=== PATIENT | female | born 1995 | race American Indian/Alaskan Native ===

== ENCOUNTER 2017-12-15 18:39 | Emergency (ER) | payer SELFPAY ==
[2017-12-15] MEDS ORDERED: NACL 0.9% 1000 ML 1,000 ML IV ONE (19:05)
[2017-12-15 19:24] LABS: Basophils # (Auto) 0.1 K/mm3 (0.0-0.1); Basophils % (Auto) 1.5 % (0.0-1.8); Eosinophils # (Auto) 0.1 K/mm3 (0.0-0.4); Eosinophils % (Auto) 1.1 % (0.0-4.3); Hematocrit 36.6 % (30.3-42.9); Hemoglobin 13.2 gm/dl (10.1-14.3); Lymphocytes # (Auto) 3.7 K/mm3 (1.2-5.4); Lymphocytes % (Auto) 40.2 % (13.4-35.0); Mean Corpuscular HGB Conc 36 % (30-34); Mean Corpuscular Hemoglobin 34 pg (28-32); Mean Corpuscular Volume 94 fl (79-97); Monocytes # (Auto) 0.6 K/mm3 (0.0-0.8); Monocytes % (Auto) 6.3 % (0.0-7.3); Platelet Count 395 K/mm3 (140-440)
[2017-12-15 19:39] LABS: Alanine Aminotransferase 10 units/L (7-56); Albumin 4.2 g/dL (3.9-5); BUN/Creatinine Ratio 7; Blood Urea Nitrogen 4 mg/dL (7-17); Calcium 9.3 mg/dL (8.4-10.2); Hemolysis Index 1; Lipase 16 units/L (13-60)
[2017-12-15 20:09] LABS: Bacteria,Urine 1+ /HPF (Negative); Bilirubin,Urine NEG (Negative); Blood,Urine NEG (Negative); Color,Urine Straw (Yellow); Protein,Urine <15 mg/dL mg/dL (Negative); Urobilinogen,Urine < 2.0 mg/dL (<2.0); WBC,Urine < 1.0 /HPF (0.0-6.0)
[2017-12-15 20:13] LABS: HCG Qualitative,Urine Positive (Negative)
[2017-12-15] MEDS ORDERED: TYLENOL PO ONE (20:40)
[2017-12-15] MEDS ORDERED: ZOFRAN ODT ONE (20:47)
[2017-12-15] MEDS ORDERED: ZOFRAN ODT PO ONE (20:47)
--- NOTE | 2017-12-16 02:14 | Emergency Department Report ---
ED Abdominal Pain HPI - General Chief Complaint: Abdominal Pain Stated Complaint: SOB/CHEST/ABDOMINAL PAIN Time Seen by Provider: 12/16/17 02:06 Source: patient Mode of arrival: Ambulatory Limitations: No Limitations - History of Present Illness Initial Comments: Patient is 22 years old female with no significant past medical history the patient presented to the ER complaining of abdominal pain for the last few weeks and patient stated that pain started in the suprapubic area that radiated to epigastric area. Patient denied any fever, chest , cough or shortness of breath. MD Complaint: abdominal pain -: week(s) Location: suprapubic Radiation: epigastric Migration to: no migration Severity: moderate Severity scale (0 -10): 10 Quality: cramping Consistency: constant - Related Data Home Medications Medication Instructions Recorded Confirmed Last Taken No Known Home Medications [No 01/09/16 01/09/16 Unknown Reported Home Medications] Allergies Allergy/AdvReac Type Severity Reaction Status Date / Time shellfish derived Allergy Swelling Verified 01/09/16 19:01 ED Review of Systems ROS: Stated complaint: SOB/CHEST/ABDOMINAL PAIN Other details as noted in HPI Comment: All other systems reviewed and negative Constitutional: denies: chills Respiratory: denies: cough, shortness of breath, SOB with exertion, wheezing Cardiovascular: denies: chest pain Gastrointestinal: abdominal pain. denies: nausea, vomiting, diarrhea, constipation, hematemesis, melena, hematochezia Genitourinary: abnormal menses Neurological: denies: headache, weakness, numbness, paresthesias, confusion, abnormal gait ED Past Medical Hx - Past Medical History Hx Asthma: Yes (CHILD) - Surgical History Additional Surgical History: TONSILLECTOMY,WISDOM TEETH - Social History Smoking Status: Never Smoker Substance Use Type: None - Medications Home Medications: Home Medications Medication Instructions Recorded Confirmed Last Taken Type No Known Home Medications [No 01/09/16 01/09/16 Unknown History Reported Home Medications] ED Physical Exam - General Limitations: No Limitations General appearance: alert, in no apparent distress - Head Head exam: Present: atraumatic, normocephalic, normal inspection - Eye Eye exam: Present: normal appearance - ENT ENT exam: Present: normal exam, normal orophraynx, mucous membranes moist - Neck Neck exam: Present: normal inspection, full ROM. Absent: tenderness, meningismus, lymphadenopathy, thyromegaly - Respiratory Respiratory exam: Present: normal lung sounds bilaterally. Absent: respiratory distress, wheezes, rales, rhonchi, chest wall tenderness, accessory muscle use, decreased breath sounds, prolonged expiratory - Cardiovascular Cardiovascular Exam: Present: regular rate, normal rhythm, normal heart sounds - GI/Abdominal GI/Abdominal exam: Present: soft, normal bowel sounds. Absent: distended, tenderness, guarding, rebound, rigid, organomegaly, mass, bruit, pulsatile mass , hernia - Extremities Exam Extremities exam: Present: normal inspection, full ROM, normal capillary refill. Absent: pedal edema, calf tenderness - Back Exam Back exam: Present: normal inspection, full ROM. Absent: CVA tenderness (R), CVA tenderness (L), muscle spasm, paraspinal tenderness, vertebral tenderness, rash noted - Neurological Exam Neurological exam: Present: alert, oriented X3, CN II-XII intact, normal gait, reflexes normal - Skin Skin exam: Present: warm, intact, normal color ED Course Vital Signs 12/15/17 12/15/17 12/16/17 18:57 22:50 01:43 Temperature 98.8 F Pulse Rate 61 Respiratory 20 16 Rate Blood Pressure 114/69 Blood Pressure [Left] O2 Sat by Pulse 98 99 Oximetry 12/16/17 12/16/17 12/16/17 01:48 02:01 03:39 Temperature 98.1 F Pulse Rate 61 50 L Respiratory 16 20 Rate Blood Pressure 108/75 112/62 Blood Pressure 113/68 [Left] O2 Sat by Pulse 99 96 99 Oximetry 12/16/17 03:40 Temperature Pulse Rate 65 Respiratory 16 Rate Blood Pressure Blood Pressure [Left] O2 Sat by Pulse 99 Oximetry ED Medical Decision Making - Lab Data Result diagrams: 12/15/17 19:13 12/15/17 19:13 - Radiology Data Radiology results: report reviewed Referring Physician: TORIBIO BARRETO Patient Name: BEATRIZ GANDARA Date of : 1995 Sex: Female Report Date: 2017-12-16 Report Status: Finalized Findings [facility] [address] [place] [address] Ultrasound Report Signed Patient: BEATRIZ PLAZA MR#: [id number] : 1995 Acct:[id number] Age/Sex: 22 / F ADM Date: 12/15/17 Loc: ED Attending Dr: Ordering Physician: TORIBIO BARRETO Date of Service: 12/16/17 Procedure(s): US OB <= 14 weeks fetus Accession Number(s): [id number] cc: TORIBIO BARRETO FINAL REPORT EXAM: US OB lt; = 14 WEEKS FETUS HISTORY: ABDOMINAL PAIN/ TECHNIQUE: Transabdominal imaging was obtained of the pelvis. Doppler interrogation of the uterus was obtained. The uterus is anteverted measuring 7.8 cm x 4.9 cm x 7.1 cm. Within the uterus is a well-formed gestational sac which contains a yolk sac and pole. The crown-rump length is 12 mm corresponding to a 7 week 3 day IUP. The heart rate is 165 BPM. There is no evidence of subchorionic hemorrhage. Free fluid is not seen. The ovaries are not seen. FINDINGS: As above. IMPRESSION: Single viable IUP, 7 weeks 3 days. The heart rate is 165 BPM. Ovaries cannot be identified. Transcribed By: RB Dictated By: CARRILLO MARTINEZ MD Electronically Authenticated By: CARRILLO MARTINEZ MD Signed Date/Time: 12/16/17305 DD/ 5 TD/TT: 12/16/17305 Critical care attestation.: If time is entered above; I have spent that time in minutes in the direct care of this critically ill patient, excluding procedure time. ED Disposition Clinical Impression: Abdominal pain affecting Disposition: DC-01 TO HOME OR SELFCARE Is pt being admited?: No Condition: Stable Instructions: Abdominal Pain in (ED) Referrals: SOULEYMANE CAMACHO MD [Staff Physician] - 3-5 Days
--- NOTE | 2017-12-16 03:07 | Ultrasound Report ---
FINAL REPORT EXAM: US OB < = 14 WEEKS FETUS HISTORY: ABDOMINAL PAIN/ TECHNIQUE: Transabdominal imaging was obtained of the pelvis. Doppler interrogation of the uterus was obtained. The uterus is anteverted measuring 7.8 cm x 4.9 cm x 7.1 cm. Within the uterus is a well-formed gestational sac which contains a yolk sac and pole. The crown-rump length is 12 mm corresponding to a 7 week 3 day IUP. The heart rate is 165 BPM. There is no evidence of subchorionic hemorrhage. Free fluid is not seen. The ovaries are not seen. FINDINGS: As above. IMPRESSION: Single viable IUP, 7 weeks 3 days. The heart rate is 165 BPM. Ovaries cannot be identified.
[2017-12-16 03:49] VITALS: BP 112/62
== END 2017-12-16 04:15 | disposition home or self-care (01) ==
LOC: ED 18:39
DX: O26.891 Other specified pregnancy related conditions, first trimester (principal); R10.2 Pelvic and perineal pain; J45.909 Unspecified asthma, uncomplicated; Z3A.01 Less than 8 weeks gestation of pregnancy; Z91.013 Allergy to seafood; Z90.89 Acquired absence of other organs
CPT/HCPCS: 36415; 76801; 80053; 81001; 81025; 83690; 84702; 85025; 93005; 93010; Q0162

== ENCOUNTER 2018-07-24 08:48 | Inpatient (IN) | payer OTHER ==
--- NOTE | 2018-07-24 11:20 | Ultrasound Report ---
OB LIMITED INDICATION: Confirm presentation. COMPARISON: 12/16/2017 TECHNIQUE: Transabdominal grayscale ultrasound with Doppler interrogation. Gestation: Mejia Position: Cephalic Heart Rate: 140 BPM CONCLUSION: Findings, as above.
[2018-07-24 12:19] LABS: Basophils # (Auto) 0.1 K/mm3 (0.0-0.1); Basophils % (Auto) 0.7 % (0.0-1.8); Eosinophils # (Auto) 0.1 K/mm3 (0.0-0.4); Hematocrit 34.8 % (30.3-42.9); Hemoglobin 11.8 gm/dl (10.1-14.3); Lymphocytes # (Auto) 2.1 K/mm3 (1.2-5.4); Lymphocytes % (Auto) 29.1 % (13.4-35.0); Mean Corpuscular HGB Conc 34 % (30-34); Mean Corpuscular Volume 91 fl (79-97); Monocytes # (Auto) 0.4 K/mm3 (0.0-0.8); Monocytes % (Auto) 5.2 % (0.0-7.3); Platelet Count 353 K/mm3 (140-440); Red Blood Count 3.84 M/mm3 (3.65-5.03); Red Cell Distribution Width 13.1 % (13.2-15.2)
[2018-07-24] MEDS ORDERED: MINERAL OIL PO PRN (19:48)
[2018-07-24] MEDS ORDERED: XYLOCAINE 2% INFILTRATI ONE (19:48)
[2018-07-24] MEDS ORDERED: BRETHINE SUB-Q PRN (19:48)
[2018-07-24] MEDS ORDERED: BRETHINE IVP PRN (19:48)
[2018-07-24] MEDS ORDERED: PITOCin/NS 20 UNIT/1000ML DRIP 20 UNITS/1,000 ML BAG IV SCH (20:00)
--- NOTE | 2018-07-24 20:50 | History and Physical Report ---
History of Present Illness Date of examination: 07/24/18 Date of admission: 07/24/18 08:48 Chief complaint: IUP@38 6/7wga IOL for morbid obesity as recommended by APA Past History Past Medical History: asthma Past Surgical History: tonsillectomy [employer] History: chlamydia, herpes Social history: full code. denies: smoking, alcohol abuse, prescription drug abuse, IV drug use - Obstetrical History Expected Date of Delivery: 08/01/18 Actual Gestation: 38 Week(s) 6 Day(s) : 1 Medications and Allergies Allergies Allergy/AdvReac Type Severity Reaction Status Date / Time Iodine and Iodide Containing Allergy Itching Verified 07/24/18 09:44 Produc shellfish derived Allergy Swelling Verified 01/09/16 19:01 Home Medications Medication Instructions Recorded Confirmed Last Taken Type Pnv No.95/Ferrous Fum/Folic AC 1 each PO DAILY #30 tablet 12/16/17 07/24/18 Unknown Rx [ Vitamin Tablet] valACYclovir [Valtrex] 1 tab PO DAILY 07/24/18 07/24/18 07/23/18 09:00 History 1 Active Meds: Active Medications Dinoprostone (Cervidil) 10 mg VG ONCE ONE Stop: 07/25/18 00:01 Ephedrine Sulfate (Ephedrine Sulfate) 10 mg IV Q2M PRN PRN Reason: Hypotension Oxytocin/Sodium Chloride (Pitocin/Ns 20 Unit/1000ml Drip) 20 units in 1,000 mls @ 125 mls/hr IV DIRECT GIBSON Lactated Ringer's (Lactated Ringers) 1,000 mls @ 125 mls/hr IV DIRECT GIBSON Mineral Oil (Mineral Oil) 30 ml PO QHS PRN PRN Reason: Constipation Terbutaline Sulfate (Brethine) 0.25 mg SUB-Q ONCE PRN PRN Reason: Hyperstimulation/Hypertonicity Terbutaline Sulfate (Brethine) 0.25 mg IVP ONCE PRN PRN Reason: Hyperstimulation/Hypertonicity Valacyclovir HCl (Valtrex) 500 mg PO DAILY GIBSON Review of Systems All systems: negative - Vital Signs Vital signs: Vital Signs Pulse BP 73 124/70 07/24/18 09:13 07/24/18 09:13 Temp Pulse Resp BP Pulse Ox 98.3 F 80 20 119/71 07/24/18 18:00 07/24/18 19:29 07/24/18 18:00 07/24/18 19:29 - Physical Exam Breasts: Positive: deferred Cardiovascular: Regular rate Lungs: Positive: Normal air movement Abdomen: Positive: soft, other (obese). Negative: tenderness, guarding Genitourinary (Female): Positive: normal external genitalia, normal perenium Vulva: both: normal (no HSV lesions noted) Uterus: Positive: enlarged. Negative: tender Anus/Rectum: Positive: normal perianal skin Extremities: Positive: normal. Negative: tenderness, edema - Obstetrical FHR: category 1 Uterine Contraction Monitor Mode: External Cervical Dilatation: 1 Uterine Contraction Pattern: Absent Results Result Diagrams: 07/24/18 11:42 Abnormal lab results 07/24/18 Range/Units 11:42 RDW 13.1 L (13.2-15.2) % All other labs normal. Ultrasound: report reviewed Assessment and Plan - Patient Problems (1) 39 weeks gestation of Current Visit: Yes Status: Acute (2) Morbid obesity with BMI of 45.0-49.9, adult Current Visit: Yes Status: Acute Plan to address problem: Documented weight gain noted. Reason for IOL discussed with patient and family. She was informed IOL may take several days. Explained will start cervidil at [place] when she becomes 39weeks. Expectant course of care reviewed. She states her last US at [facility] EFW [id number]. Discussed 1-2#discrepancy and difficulty of assessing adequacy of pelvis at this EGA and body habitus.Shoulder dystocia explained. C/S discussed, however risks of complications and need for c/sfor subsequent pregnancies reviewed. She voiced understanding and agrees with BENEDICT. (3) History of herpes simplex infection Current Visit: Yes Status: Acute Plan to address problem: Denies prodromal symptoms or HSV outbreak, no evidence of HSV outbreaks
--- NOTE | 2018-07-24 23:20 | Event Note ---
Date: 07/24/18 Patient initially asked to leave AMA b/c she does not want a c/s. Again explained indication for c/s, she was reassured at this point she has no reason for a c/s. Again reiterated IOL and plan. She was informed she will have clear liquids while on cervidil and ice chips on pitocin. She voiced understanding and desires to proceed with IOL.
[2018-07-25] MEDS: AMBIEN PO PRN (00:31)
--- NOTE | 2018-07-25 09:35 | Progress Note ---
Assessment and Plan - Patient Problems (1) 39 weeks gestation of Current Visit: Yes Status: Acute (2) Morbid obesity with BMI of 45.0-49.9, adult Current Visit: Yes Status: Acute Plan to address problem: Cervdil out, allow shower, then pitocin, plan of care discussed with patient and visitors. She voiced understanding (3) History of herpes simplex infection Current Visit: Yes Status: Acute Subjective - Subjective Date of service: 07/25/18 Principal diagnosis: IUP@ 39weeks, IOL for Morbid obesity Patient reports: movement normal, no new complaints, no loss of fluid, no vaginal bleeding, no contractions Objective - Vital Signs Vital Signs: Vital Signs - 12hr 07/24/18 07/25/18 07/25/18 21:34 00:28 00:33 Temperature Pulse Rate 75 80 83 Respiratory Rate Blood Pressure 134/69 122/66 111/69 Blood Pressure [Left] 07/25/18 08:13 Temperature 96 F L Pulse Rate 81 Respiratory 16 Rate Blood Pressure 135/85 Blood Pressure 135/85 [Left] - Exam Breasts: deferred Cardiovascular: Normal S1 Lungs: Normal air movement Abdomen: Present: other (obese) Vulva: both: normal Uterus: Present: fundal height above umbilicus. Absent: tenderness FHR: category 1 Uterine Contraction Monitor Mode: External Cervical Dilatation: 1 Cervical Effacement Percentage: 30 station: -3 cervidil removed Uterine Contraction Pattern: Absent - Labs Labs: Abnormal Labs 07/24/18 11:42 RDW 13.1 L Laboratory Results - last 24 hr 07/24/18 07/24/18 07/24/18 11:42 11:42 11:42 WBC 7.4 RBC 3.84 Hgb 11.8 Hct 34.8 MCV 91 MCH 31 MCHC 34 RDW 13.1 L Plt Count 353 Lymph % (Auto) 29.1 Crosby % (Auto) 5.2 Eos % (Auto) 1.0 Baso % (Auto) 0.7 Lymph # 2.1 Crosby # 0.4 Eos # 0.1 Baso # 0.1 Seg Neutrophils % 64.0 Seg Neutrophils # 4.7 RPR Nonreactive Hep Bs Antigen HIV 1&2 Antibody Rapid HIV P24 Antigen Rubella IgG Antibody Blood Type A POSITIVE Antibody Screen Negative 07/24/18 07/24/18 07/24/18 11:42 11:42 11:42 WBC RBC Hgb Hct MCV MCH MCHC RDW Plt Count Lymph % (Auto) Crosby % (Auto) Eos % (Auto) Baso % (Auto) Lymph # Crosby # Eos # Baso # Seg Neutrophils % Seg Neutrophils # RPR Hep Bs Antigen Non-reactive HIV 1&2 Antibody Rapid Non react HIV P24 Antigen Non react Rubella IgG Antibody Immune Blood Type Antibody Screen
[2018-07-25] MEDS: VALTREX PO SCH (10:36)
[2018-07-25] MEDS: LACTATED RINGERS 1,000 ML IV SCH (10:37)
[2018-07-25] MEDS: PITOCin/NS 30 UNIT/500ML 30 UNITS/500 ML BAG IV SCH ×7 (10:37→16:20)
[2018-07-25] MEDS ORDERED: PITOCin/NS 30 UNIT/500ML 30 UNITS/500 ML BAG IV SCH (11:00)
[2018-07-25] MEDS ORDERED: CERVIDIL VG ONE ×2 (20:15)
--- NOTE | 2018-07-25 20:25 | Event Note ---
Date: 07/25/18 Patient resting in bed, no complaints. Will check cervix and place cervidil if no change. Cat 1 fht's. Plan of care explained, questions answered, she voiced understanding and agrees with plan of care
[2018-07-26] MEDS: AMBIEN PO PRN (01:22)
--- NOTE | 2018-07-26 07:56 | Progress Note ---
Assessment and Plan 23yo @ 39w1d IOL DAy # 2 Cervidil removed, SVE 1,40,-3. AM care, diet, ambulation. Will start pitocin @ 0930. Encouraged questions All addressed. present during visit with pt. Re-eval as needed. Subjective - Subjective Date of service: 07/26/18 (pt c/o leg pain) Principal diagnosis: IUP@ 39w1d, IOL for Morbid obesity Patient reports: movement normal, no new complaints, no loss of fluid, no vaginal bleeding, no contractions Objective - Vital Signs Vital Signs: Vital Signs - 12hr 07/25/18 07/25/18 07/25/18 20:08 21:00 21:54 Temperature 96.7 F L Pulse Rate 99 H 84 Respiratory 18 Rate Blood Pressure 140/70 119/58 07/26/18 07/26/18 07/26/18 00:00 00:03 01:33 Temperature 97.6 F Pulse Rate 75 72 Respiratory 20 Rate Blood Pressure 124/78 118/71 07/26/18 07/26/18 07/26/18 02:32 06:01 06:30 Temperature 96.0 F L Pulse Rate 82 86 Respiratory 18 Rate Blood Pressure 116/68 124/78 - Exam Breasts: deferred Cardiovascular: Regular rate Lungs: Normal air movement Abdomen: Present: normal appearance, soft. Absent: distention, tenderness Uterus: Present: normal FHR: auscultation normal, category 1 Uterine Contraction Monitor Mode: External Cervical Dilatation: 1 (cervidil removed) Cervical Effacement Percentage: 40 station: -3 Uterine Contraction Pattern: Irregular Uterine Tone Measurement Phase: Resting Uterine Contraction Intensity: Mild Extremities: edema Deep Tendon Reflex Grade: Normal +2 - Labs Labs: Abnormal Labs 07/24/18 11:42 RDW 13.1 L
[2018-07-26] MEDS: PITOCin/NS 30 UNIT/500ML 30 UNITS/500 ML BAG IV SCH (09:44)
[2018-07-26] MEDS: LACTATED RINGERS 1,000 ML IV SCH (09:56)
[2018-07-26] MEDS: VALTREX PO SCH (09:56)
--- NOTE | 2018-07-26 14:25 | Event Note ---
Date: 07/26/18 (Pt & family have ?? @ POC) Reviewed again POC with pt and her family. Serial IOL: cervidil @ night; pitocin in the daytime. IOL can take several days. Today is day #2. Plan: turn pit off @ 1700, PM care, place 3rd cervidil @ 1900. All questions addressed. Pt reassured.
[2018-07-26] MEDS ORDERED: CERVIDIL VG ONE (19:00)
--- NOTE | 2018-07-26 22:28 | Event Note ---
Date: 07/26/18 Spoke with patient by phone on speaker mode and witnessed by Sharee OTERO: She declines any further attempts of IOL and she desires to go home. Discussed low dose pitocin vs cervidil vs cytotec. She was strongly encouraged to remain hospitalized tonight with continuous monitoring. Also offered no further attempts tonight however allow her to speak with MFM in am then to make her decision. After a long discussion, she desires to go home. She was informed her baby may or be brain damaged should she leave and not have any monitoring. She voiced understanding and states she will leave against medical advice. She will call [facility] tomorrow to discuss plan of care.
--- NOTE | 2018-07-26 23:39 | Event Note ---
Date: 07/26/18 Spoke with patient again by phone, she now desires to remain hospitalized and is considering delivery tomorrow. She will review the consents.She will remain on continuous monitoring tonight.
[2018-07-26] MEDS ORDERED: LACTATED RINGERS 1,000 ML IV SCH (23:45)
[2018-07-27] MEDS ORDERED: PEPCID IV NR (07:30)
[2018-07-27] MEDS ORDERED: PITOCin/NS 20 UNIT/1000ML DRIP 20 UNITS/1,000 ML BAG IV SCH ×2 (07:30→15:11)
[2018-07-27] MEDS ORDERED: REGLAN IV NR (07:30)
[2018-07-27] MEDS ORDERED: LACTATED RINGERS 1,000 ML IV SCH (07:30)
[2018-07-27] MEDS ORDERED: BICITRA PO NR (07:30)
--- NOTE | 2018-07-27 07:34 | Event Note ---
Date: 07/27/18 Follow-up from Dr. Burleson's note, had the following discussion with the patient and her mother. Discussed the safest route of delivery would be to continue induction to achieve a vaginal delivery. Patient is frustrated by length of time that her labor induction has taken. Serous induction explained to the patient. I could not insure patient that continuing with induction would not result in a section. Patient desires to move to section. Patient informed the risks of the surgery include bleeding possibly bleeding heavy enough to require blood transfusion, infection possible damage to bowel bladder ureter. Discussed with the patient increased risk of all the above due to her obesity. All questions answered. Patient desires to proceed with section. Patient understands all future deliveries may be scheduled section.
[2018-07-27] MEDS ORDERED: ceFAZolin 3 GM in NACL 0.9% 100 ML IV NR (08:00)
[2018-07-27 08:32] LABS: Basophils # (Auto) 0.1 K/mm3 (0.0-0.1); Basophils % (Auto) 0.7 % (0.0-1.8); Eosinophils # (Auto) 0.1 K/mm3 (0.0-0.4); Lymphocytes # (Auto) 2.2 K/mm3 (1.2-5.4); Lymphocytes % (Auto) 27.5 % (13.4-35.0); Mean Corpuscular HGB Conc 34 % (30-34); Mean Corpuscular Volume 91 fl (79-97); Monocytes # (Auto) 0.6 K/mm3 (0.0-0.8); Platelet Count 360 K/mm3 (140-440); Red Blood Count 4.19 M/mm3 (3.65-5.03)
--- NOTE | 2018-07-27 11:00 | Anesthesia Consultation ---
Anesthesia Consult and Med Hx - Airway Anesthetic Teeth Evaluation: Good ROM Head & Neck: Adequate Mental/Hyoid Distance: Adequate Mallampati Class: Class II Intubation Access Assessment: Probably Good - Pulmonary Exam CTA: Yes - Cardiac Exam Cardiac Exam: RRR - Pre-Operative Health Status ASA Pre-Surgery Classification: ASA2 Proposed Anesthetic Plan: Spinal - Pulmonary Hx Asthma: Yes (CHILD) COPD: No Hx Pneumonia: No - Cardiovascular System Hx Hypertension: No - Central Nervous System Hx Seizures: No Hx Psychiatric Problems: No - Endocrine Hx Renal Disease: No Hx End Stage Renal Disease: No Hx Hypothyroidism: No Hx Hyperthyroidism: No - Hematic Hx Anemia: No Hx Sickle Cell Disease: No - Other Systems Hx Alcohol Use: No
--- NOTE | 2018-07-27 11:00 | Anesthesia Day of Surgery ---
Anesthesia Day of Surgery - Day of Surgery Patient Examined: Yes Patient H&P Reviewed: Yes Patient is NPO: Yes Beta Blockers: No Cardiac Clearance: No Pulmonary Clearance: No Isaias's Test: N/A
[2018-07-27] MEDS ORDERED: SUBLIMAZE ONE (11:16)
[2018-07-27] MEDS ORDERED: SODIUM CHLORIDE FLUSH SYRINGE 10 ML IV PRN (11:30)
[2018-07-27] MEDS ORDERED: PHENERGAN PO PRN (11:30)
[2018-07-27] MEDS ORDERED: PHENERGAN PR PRN (11:30)
[2018-07-27] MEDS ORDERED: BENADRYL IV PRN (11:30)
[2018-07-27] MEDS ORDERED: ZOFRAN IV PRN (11:30)
[2018-07-27] MEDS ORDERED: NARCAN 0.4 MG/1 ML IV PRN ×2 (11:30→15:11)
[2018-07-27] MEDS ORDERED: DILAUDID IV PRN (11:30)
[2018-07-27] MEDS ORDERED: LACTATED RINGERS 1,000 ML ONE (11:43)
[2018-07-27] MEDS ORDERED: TORADOL ONE (12:00)
[2018-07-27] MEDS ORDERED: BENADRYL ONE (12:33)
--- NOTE | 2018-07-27 12:36 | Operative Report ---
Operative Report Operative Report: Date of procedure: 07/27/2018 Pre-operative diagnosis: Intrauterine at 39 weeks with failed labor in duction for morbid obesity patient desires primary section Post-operative diagnosis: Same Procedure name(s): Primary low transverse section Surgeon: Popeye Sánchez MD Acetylene Gas Compressor: Adilene Lopez, physics technical officer Anesthesia: Spinal EBL: 500 mL Complications: None Findings: Patient with normal uterus tubes and ovaries bilaterally. Male infant weight 6 lbs. 7 oz. Apgars 8 at 1 minute and 9 at 5 minutes Specimen(s): None Procedure: The patient was brought to the operating room. Her spinal was placed without any complications. She was then placed in left lateral tilt. Prepped and draped in the usual sterile manner. After testing for adequate anesthesia level, a Pfannenstiel incision was made. This incision was taken down to the fascia. The fascia was then nicked in the midline. This incision was extended out laterally with Beavers scissors. The fascia was then sharply and bluntly from the underlying rectus muscles. The rectus muscles were bluntly and sharply . The peritoneum was then entered with the fiber drier operator's fingers. This incision was spread vertically with care not to damage the bladder below. The Aquiles self-retaining tractor was then placed without any difficulty. The bladder flap was then formed sharply and bluntly with Metzenbaum scissors. A transverse incision was made in lower uterine segment. This incision was extended laterally with the operators fingers. The amniotic sac was then entered bluntly with the fiber drier operator's fingers. The infant was delivered from the vertex position. Bulb suction on the mother's abdomen. Cord was double clamped and cut. The was then passed to the nursery personnel who were in attendance. The above scores were given by the nursery personnel. The placenta was then bluntly removed. The uterus was then externalized and wiped clean the remaining products. The uterine incision was closed in layers. The first incision was closed in a locking manner using 0 Vicryl. This was followed by imbricating stitch also with 0 Vicryl. This closure was hemostatic. The bladder flap was copiously irrigated and found to be hemostatic. The pelvis was copiously irrigated and found to be hemostatic. The uterus was then placed back to the patient's abdomen. The retractors were removed. The rectus muscles were inspected and found to be hemostatic. The fascia was then closed in a running manner using 0 Vicryl. This incision was hemostatic irrigation Bovie. The skin was reapproximated with 4-0 Vicryl subcuticularly. The patient tolerated procedure well. Her urine was clear. The infant was admitted to the [facility] baby nursery. The patient was accompanied to recovery room in good condition. Instrument count correct times 3.
--- NOTE | 2018-07-27 12:46 | Post Anesthesia Evaluation ---
- Post Anesthesia Evaluation Patient Participated: Yes Airway Patent: Yes Stable Respiratory Function: Yes Nausea/Vomiting: No Temp > 96.8F: Yes Pain Manageable: Yes Adequeate Hydration: Yes Anesthesia Complications: No Block Receding Appropriately: Yes Patient on Ventilator: No
[2018-07-27] MEDS ORDERED: LANSINOH TP PRN (15:11)
[2018-07-27] MEDS ORDERED: D5LR 1,000 ML IV SCH (15:11)
[2018-07-27] MEDS ORDERED: MILK OF MAGNESIA PO PRN (15:11)
[2018-07-27] MEDS ORDERED: SODIUM CHLORIDE FLUSH SYRINGE 10 ML IV NR (15:11)
[2018-07-27] MEDS ORDERED: TUCKS PAD TP PRN (15:11)
[2018-07-27] MEDS: NORCO 5/325 PO PRN (16:12)
[2018-07-27] MEDS: TORADOL IV SCH ×2 (16:13→23:30)
[2018-07-27] MEDS: ANCEF/NS 1 GM/50 ML 1 GM/50 ML BAG IV SCH (16:13)
[2018-07-28 00:31] LABS: Hematocrit 32.3 % (30.3-42.9); Hemoglobin 10.7 gm/dl (10.1-14.3)
[2018-07-28] MEDS: ANCEF/NS 1 GM/50 ML 1 GM/50 ML BAG IV SCH (01:23)
[2018-07-28] MEDS: TORADOL IV SCH ×2 (02:45→08:29)
--- NOTE | 2018-07-28 05:37 | Progress Note ---
Assessment and Plan - Patient Problems (1) delivery delivered Onset Date: ~07/27/18 Current Visit: Yes Status: Acute Plan to address problem: Pt sitting on side of bed caring for NB No c/o voiced VSS FF below umb Lochia small Dressing D&I H&H drop r/t blood loss from surgery Asymptomatic Doing well s/p c/s P: continue pathway Advance diet and activity as tolerated Subjective - Subjective Date of service: 07/28/18 (no voiced c/o) Principal diagnosis: Day # 1 s/p section Patient reports: voiding normally, pain well controlled, ambulating normally : doing well Objective - Vital Signs Latest vital signs: Vital Signs Temp Pulse Resp BP BP Pulse Ox 07/28/18 00:00 98.8 F 74 18 101/75 07/27/18 23:30 18 07/27/18 21:25 98.0 F 74 18 105/61 95 07/27/18 16:10 97.1 F L 74 18 116/67 100 07/27/18 14:17 97.6 F 66 18 100/56 07/27/18 14:00 73 16 101/79 99 07/27/18 13:45 77 14 103/56 100 07/27/18 13:30 67 12 91/64 99 07/27/18 13:15 73 13 96/61 100 07/27/18 13:05 68 12 104/61 100 07/27/18 13:00 79 14 98/57 100 07/27/18 12:55 68 16 108/53 99 07/27/18 12:45 97.0 F L 80 16 105/58 99 07/27/18 08:03 78 118/78 07/27/18 08:00 98.0 F 18 07/27/18 07:17 82 97 07/27/18 07:12 75 97 07/27/18 07:07 66 97 07/27/18 07:02 79 97 07/27/18 06:57 74 98 07/27/18 06:52 96 H 100 07/27/18 06:37 76 97 07/27/18 06:32 73 98 07/27/18 06:27 78 97 07/27/18 06:22 74 98 07/27/18 06:17 71 98 07/27/18 06:12 80 98 07/27/18 06:08 77 88 07/27/18 06:07 95 H 100 07/27/18 06:00 79 96 07/27/18 05:55 77 96 07/27/18 05:50 77 98 07/27/18 05:45 75 95 07/27/18 05:40 69 95 07/27/18 05:35 72 96 Intake and Output 07/27/18 07/27/18 07/28/18 14:59 22:59 06:59 Intake Total 1800 410 300 Output Total 175 100 Balance 1625 410 200 Intake: IV 1800 50 ANCEF/NS 1 GM/50 ML 1 gm 50 In 50 ml @ 100 mls/hr IV Q8H [facility] Rx#:[id number] Oral 360 Intake, Free Water 300 Output: Urine 175 100 Indwelling Catheter 100 Other: Total, Intake Amount 360 Total, Output Amount 100 # Voids Void 1 Estimated Blood Loss 300 - Exam Breasts: Present: normal Cardiovascular: Present: Regular rate Lungs: Present: Normal air movement Abdomen: Present: normal appearance, soft, normal bowel sounds Extremities: Present: normal, edema Deep Tendon Reflex Grade: Normal +2 Incision: Present: normal, dry, intact, dressed (to be removed this AM) - Labs Labs: Abnormal lab results 07/27/18 Range/Units 07:56 RDW 13.0 L (13.2-15.2) %
[2018-07-28] MEDS: NORCO 5/325 PO PRN ×3 (08:29→23:33)
[2018-07-28] MEDS: IBUPROFEN PO PRN ×3 (08:30→23:33)
[2018-07-28] MEDS: FEOSOL PO SCH ×2 (08:45→10:00)
[2018-07-28] MEDS: PRENATAL VITAMIN PO SCH ×2 (08:46→10:00)
[2018-07-29] MEDS: IBUPROFEN PO PRN ×3 (06:42→19:51)
[2018-07-29] MEDS: NORCO 5/325 PO PRN ×3 (06:43→19:52)
--- NOTE | 2018-07-29 08:28 | Discharge Summary ---
Providers - Providers Date of Admission: 07/24/18 08:48 Date of discharge: 07/29/18 Attending physician: SOULEYMANE CAMACHO 07/27/18 15:11 Consult to Telephone Installer [CONS] Routine Reason For Exam: Primary care physician: SOULEYMANE CAMACHO Hospitalization Reason for admission: IOL Condition: Good Pertinent studies: postop H&H 10.7/32.3 Procedures: primary c/s Hospital course: uncomplicated c/s and postop pathway Disposition: DC-01 TO HOME OR SELFCARE - Discharge Diagnoses (1) delivery delivered Status: Acute Core Measure Documentation - Palliative Care Palliative Care/ Comfort Measures: Not Applicable - Core Measures Any of the following diagnoses?: none Exam - Constitutional Vitals: Temp Pulse Resp BP Pulse Ox 98.2 F 88 18 117/66 98 07/29/18 07:51 07/29/18 07:51 07/29/18 07:51 07/29/18 07:51 07/29/18 07:51 General appearance: Present: no acute distress, well-nourished - EENT Eyes: Present: PERRL ENT: hearing intact, clear oral mucosa - Neck Neck: Present: supple, normal ROM - Respiratory Respiratory effort: normal Respiratory: bilateral: CTA - Cardiovascular Heart Sounds: Present: S1 & S2. Absent: rub, click - Extremities Extremities: pulses symmetrical, No edema Peripheral Pulses: within normal limits - Abdominal General gastrointestinal: Present: soft, non-tender, non-distended, normal bowel sounds Female genitourinary: Present: normal - Integumentary Integumentary: Present: clear, warm, dry - Musculoskeletal Musculoskeletal: gait normal, strength equal bilaterally - Psychiatric Psychiatric: appropriate mood/affect, intact judgment & insight - Neurologic Neurologic: CNII-XII intact, moves all extremities - Additional findings Additional findings: incision D&I - steristrips in place. with good latch. Lochia small Plan Activity: advance as tolerated Diet: regular Wound: open to air, keep clean and dry Follow up with: SOULEYMANE CAMACHO MD [Primary Care Provider] - 7 Days (Congratulations! Please call [phone] to schedule your son's circumcision and your incision check in 1 week. Bring EMLA cream to your son's appointment and await further teaching. Call for any questions or concerns. ) Forms: AMA Form Prescriptions: Ferrous Sulfate [Feosol 325 MG tab] 325 mg PO BID #60 tablet Ibuprofen [Motrin 800 MG tab] 800 mg PO Q6H PRN #30 tablet PRN Reason: Pain oxyCODONE /ACETAMINOPHEN [Percocet 5/325 mg] 1 - 2 tab PO Q4H PRN #30 tablet PRN Reason: Pain, Moderate
--- NOTE | 2018-07-29 10:28 | Progress Note ---
Assessment and Plan - Patient Problems (1) delivery delivered Onset Date: ~07/27/18 Current Visit: Yes Status: Acute Plan to address problem: Continue routine PP orders Anticipate d/c home tomorrow (2) Morbid obesity with BMI of 45.0-49.9, adult Current Visit: Yes Status: Acute (3) Anemia Current Visit: Yes Status: Acute Qualifiers: Anemia type: other cause Other causes of anemia: acute posthemorrhagic Qualified Code(s): D62 - Acute posthemorrhagic anemia Plan to address problem: Continue daily po iron supplemention as ordered Subjective - Subjective Date of service: 07/29/18 Principal diagnosis: Day # 2 s/p section Interval history: See admission H & P; OB operative note and PP progress notes Patient reports: appetite normal, voiding normally, pain well controlled (with medications), flatus, ambulating normally, other (States she is feeling good, just a little sore. Would rather wait until tomorrow to go home.), no bowel movement : doing well, bottle feeding (and breast) Objective - Vital Signs Latest vital signs: Vital Signs Temp Pulse Resp BP BP Pulse Ox 07/29/18 07:51 98.2 F 88 18 117/66 98 07/29/18 01:58 97.9 F 78 20 119/87 07/28/18 16:32 98.5 F 80 20 113/70 95 07/28/18 13:11 97.9 F 67 20 83/59 96 Intake and Output 07/28/18 07/29/18 07/29/18 23:59 07:59 15:59 Intake Total 360 Balance 360 Intake: Intake, Free Water 360 Other: # Voids Void 1 - Exam Breasts: Present: normal Cardiovascular: Present: Regular rate Lungs: Present: Normal air movement Abdomen: Present: soft, normal bowel sounds Uterus: Present: firm, fundal height below umbilicus (U-1) Extremities: Present: normal, edema (slight edema) Deep Tendon Reflex Grade: Normal +2 Incision: Present: dry, intact (steri-strips with no bleeding or drainage noted)
[2018-07-29] MEDS: PRENATAL VITAMIN PO SCH (14:05)
[2018-07-29] MEDS: FEOSOL PO SCH (14:05)
[2018-07-30] MEDS: NORCO 5/325 PO PRN ×2 (03:03→11:12)
[2018-07-30] MEDS: IBUPROFEN PO PRN ×2 (03:03→11:13)
[2018-07-30] MEDS: PRENATAL VITAMIN PO SCH (09:56)
[2018-07-30] MEDS: FEOSOL PO SCH (09:56)
[2018-07-30 13:24] VITALS: BP 119/74
== END 2018-07-30 13:30 | disposition home or self-care (01) | DRG 765 ==
LOC: LD 08:48 → OB 07-27 14:48
PROVIDERS: ADMIT Obstetrics & Gynecology; ATTEND Obstetrics & Gynecology
PROC: 3E0P7VZ Introduction of Hormone into Female Reproductive, Via Natural or Artificial Opening (ICD-10-PCS; 2018-07-24)
PROC: 10D00Z1 Extraction of Products of Conception, Low, Open Approach (ICD-10-PCS; principal; 2018-07-27)
DX: O99.214 Obesity complicating childbirth (principal); D62 Acute posthemorrhagic anemia; O61.0 Failed medical induction of labor; O90.81 Anemia of the puerperium; Z3A.39 39 weeks gestation of pregnancy; Z37.0 Single live birth; E66.01 Morbid (severe) obesity due to excess calories; O99.52 Diseases of the respiratory system complicating childbirth; Z90.89 Acquired absence of other organs; Z91.041 Radiographic dye allergy status; Z91.013 Allergy to seafood; J45.909 Unspecified asthma, uncomplicated
CPT/HCPCS: 36415; 76815; 85014; 85018; 85025; 86592; 86706; 86762; 86850; 86900; 86901; 87806; G0378; J0690; J1200; J1885; J2405; J2590; J2765; J3010; J7120; J7121

== ENCOUNTER 2019-01-31 11:27 | Emergency (ER) | payer MEDICAID, OTHER ==
--- NOTE | 2019-01-31 11:38 | Emergency Department Report ---
Blank Doc - Documentation Documentation: 24-year-old female that presents with lower abdominal pain and n/v. This initial assessment/diagnostic orders/clinical plan/treatment(s) is/are subject to change based on patient's health status, clinical progression and re- assessment by fellow clinical providers in the ED. Further treatment and workup at subsequent clinical providers discretion. Patient/guardians urged not to elope from the ED as their condition may be serious if not clinically assessed and managed. Initial orders include: 1- Patient sent to [facility] for further evaluation and treatment 2- UA 3- labs
[2019-01-31 11:59] LABS: Basophils # (Auto) 0.1 K/mm3 (0.0-0.1); Basophils % (Auto) 1.2 % (0.0-1.8); Eosinophils # (Auto) 0.1 K/mm3 (0.0-0.4); Eosinophils % (Auto) 1.1 % (0.0-4.3); Hemoglobin 12.7 gm/dl (10.1-14.3); Lymphocytes % (Auto) 33.9 % (13.4-35.0); Mean Corpuscular HGB Conc 33 % (30-34); Mean Corpuscular Volume 91 fl (79-97); Monocytes # (Auto) 0.5 K/mm3 (0.0-0.8); Monocytes % (Auto) 6.1 % (0.0-7.3); Platelet Count 388 K/mm3 (140-440); Red Blood Count 4.17 M/mm3 (3.65-5.03); Red Cell Distribution Width 13.7 % (13.2-15.2)
[2019-01-31 12:16] LABS: Bilirubin,Urine NEG (Negative); Blood,Urine NEG (Negative); Color,Urine Yellow (Yellow); Mucus,Urine FEW /HPF; Protein,Urine <15 mg/dL mg/dL (Negative); Urobilinogen,Urine < 2.0 mg/dL (<2.0)
[2019-01-31 12:22] LABS: Alanine Aminotransferase 29 units/L (7-56); Albumin 4.3 g/dL (3.9-5); BUN/Creatinine Ratio 9; Blood Urea Nitrogen 6 mg/dL (7-17); Calcium 9.4 mg/dL (8.4-10.2); Hemolysis Index 2
[2019-01-31 12:23] LABS: HCG Qualitative,Urine Positive (Negative)
[2019-01-31] MEDS ORDERED: METOCLOPRAMIDE 10 MG/2 ML INJ IV ONE (12:39)
[2019-01-31] MEDS ORDERED: SODIUM CHLORIDE 0.9% 1000 ML 1,000 ML IV ONE (12:39)
[2019-01-31] MEDS ORDERED: ACETAMINOPHEN 325 MG TAB PO ONE (12:39)
--- NOTE | 2019-01-31 13:11 | Emergency Department Report ---
HPI - General Chief Complaint: Abdominal Pain Time Seen by Provider: 01/31/19 11:37 - HPI HPI: 24-year-old female presents to the emergency department with complaint of a few days of nausea and vomiting, constipation and some abdominal discomfort. The abdominal pain is both very low and to the upper abdomen. It worsens with any type of intra-abdominal pressure including her touching her belly or her trying to have a bowel movement. She denies any dysuria, vaginal bleeding or discharge, fever. She has not taken anything for her symptoms prior to presentation. The patient has a 5-month-old child and says that she had a menstrual cycle sometime last month. No recent travel or sick contacts at home. She does not have a primary care physician or [facility]. ED Past Medical Hx - Past Medical History Previous Medical History?: Yes Hx Hypertension: No Hx Congestive Heart Failure: No Hx Diabetes: No Hx Deep Vein Thrombosis: No Hx Renal Disease: No Hx Sickle Cell Disease: No Hx Seizures: No Hx Asthma: Yes (CHILD) Hx COPD: No Hx HIV: No - Surgical History Past Surgical History?: Yes Additional Surgical History: TONSILLECTOMY, C section - Social History Smoking Status: Never Smoker Substance Use Type: None - Medications Home Medications: Home Medications Medication Instructions Recorded Confirmed Last Taken Type Pnv No.95/Ferrous Fum/Folic AC 1 each PO DAILY #30 tablet 12/16/17 07/24/18 Unknown Rx [ Vitamin Tablet] valACYclovir [Valtrex] 1 tab PO DAILY 07/24/18 07/24/18 07/23/18 09:00 History 1 Ferrous Sulfate [Feosol 325 MG tab] 325 mg PO BID #60 tablet 07/27/18 Unknown Rx Ibuprofen [Motrin 800 MG tab] 800 mg PO Q6H PRN #30 tablet 07/27/18 Unknown Rx oxyCODONE /ACETAMINOPHEN [Percocet 1 - 2 tab PO Q4H PRN #30 tablet 07/27/18 Unknown Rx 5/325 mg] Lidocain2.5%/Prilocai2.5% [Emla] 5 gm TP ONCE PRN #1 tube 07/29/18 Unknown Rx Metoclopramide [Reglan] 10 mg PO TID PRN #20 tab 01/31/19 Unknown Rx Vit-Fe Fumar-FA [ 1 tab PO QDAY #30 tablet 01/31/19 Unknown Rx Vitamin] ED Review of Systems ROS: Stated complaint: ABD PAIN/VOMIT BLOOD/ACID Other details as noted in HPI Comment: All other systems reviewed and negative Constitutional: denies: chills, fever Respiratory: denies: shortness of breath Cardiovascular: denies: chest pain Gastrointestinal: abdominal pain, nausea, vomiting Genitourinary: denies: dysuria, discharge Musculoskeletal: denies: back pain, arthralgia Neurological: denies: headache, weakness Physical Exam - Physical Exam Vital Signs: Vital Signs 01/31/19 11:38 Temperature 97.7 F Pulse Rate 61 Respiratory 16 Rate Blood Pressure 141/63 O2 Sat by Pulse 99 Oximetry Physical Exam: GENERAL: The patient is well-developed well-nourished. HENT: Normocephalic. Atraumatic. Patient has moist mucous membranes. EYES: Extraocular motions are intact. NECK: Supple. Trachea is midline. CHEST/LUNGS: Clear to auscultation. There is no respiratory distress noted. HEART/CARDIOVASCULAR: Regular. There is no tachycardia. There is no murmur. ABDOMEN: Abdomen is soft. There is some generalized tenderness to palpation of the abdomen. No guarding. Patient has normal bowel sounds. Obese habitus. SKIN: Skin is warm and dry. NEURO: The patient is awake, alert, and oriented. The patient is cooperative. The patient has no focal neurologic deficits. Normal speech. MUSCULOSKELETAL: There is no tenderness or deformity. There is no evidence of acute injury. ED Course Vital Signs 01/31/19 11:38 Temperature 97.7 F Pulse Rate 61 Respiratory 16 Rate Blood Pressure 141/63 O2 Sat by Pulse 99 Oximetry ED Medical Decision Making - Lab Data Result diagrams: 01/31/19 11:43 01/31/19 11:43 - Radiology Data Radiology results: report reviewed OB ultrasound FINDINGS: Viable IUP is seen with heart rate 124 bpm. Appropriate measurements reveal an MA of 6 weeks 5 days for an EDC of 09/21/2019. No hemorrhage is seen. The right ovary is normal. Left ovary contains a 3.1 x 2.8 x 3.3 cm cyst. No free fluid. IMPRESSION: Viable IUP with left corpus luteum cyst. Signer Name: Colin Sánchez MD Signed: 01/31/2019 3:13 PM ULTRASOUND ABDOMEN, LIMITED (RIGHT UPPER QUADRANT) INDICATION: abd pain. COMPARISON: None available. FINDINGS: Pancreas: Visualized portion shows no significant abnormality. Liver: Normal. Gallbladder: Normal. Bile ducts: Normal. Common Bile Duct measures 2 mm. Free fluid: None. Additional Findings: None. IMPRESSION: 1. No sonographic abnormality of the right upper quadrant. Signer Name: Colin Sánchez MD Signed: 01/31/2019 3:05 PM Workstation Name: [id number] - Medical Decision Making This patient originally presented with some abdominal pain, nausea and vomiting. As part of her workup she was found be . Beta hCG of greater than 30,000. Ultrasound was performed that came back showing a live intrauterine just under 7 weeks. She also had a upper abdominal ultrasound that did not show any acute process. Labs have been unremarkable otherwise. Vital signs stable throughout her ED course. Patient was feeling better after a dose of Tylenol and Reglan. She will be given a prescription for the Reglan and some referrals for [facility]OURNEY[facility] PAINTER. She will also be placed on vitamins. She will return to the emergency Department with any worsening of her symptoms or any acute distress. - Differential Diagnosis , UTI, colitis, cholelithiasis Critical Care Time: No Critical care attestation.: If time is entered above; I have spent that time in minutes in the direct care of this critically ill patient, excluding procedure time. ED Disposition Clinical Impression: Qualifiers: Weeks of gestation: less than 8 weeks Qualified Code(s): Z3A.01 - Less than 8 weeks gestation of Nausea & vomiting Qualifiers: Vomiting type: unspecified Vomiting Intractability: non-intractable Qualified Code(s): R11.2 - Nausea with vomiting, unspecified Abdominal pain Qualifiers: Abdominal location: generalized Qualified Code(s): R10.84 - Generalized abdominal pain Disposition: DC-01 TO HOME OR SELFCARE Is pt being admited?: No Condition: Stable Instructions: (ED), Acute Nausea and Vomiting (ED), Abdominal Pain (E D) Additional Instructions: Please follow-up with a JOURNEYMAN PAINTER in the next few days. I am starting you on vitamins. I am prescribing use some Reglan for your nausea and vomiting. Increase your oral rehydration. You can take Tylenol every 4-6 hours, using weight-based dosing on the back of the bottle, as needed for any discomfort. Otherwise do not take any other medications that are not prescribed by a physician. Prescriptions: Vit-Fe Fumar-FA [ Vitamin] 1 tab PO QDAY #30 tablet Metoclopramide [Reglan] 10 mg PO TID PRN #20 tab PRN Reason: Nausea Referrals: [facility] [Provider Group] - 2-3 Days [facility] [Provider Group] - 2-3 Days Time of Disposition: 15:33
--- NOTE | 2019-01-31 15:09 | Ultrasound Report ---
ULTRASOUND ABDOMEN, LIMITED (RIGHT UPPER QUADRANT) INDICATION: abd pain. COMPARISON: None available. FINDINGS: Pancreas: Visualized portion shows no significant abnormality. Liver: Normal. Gallbladder: Normal. Bile ducts: Normal. Common Bile Duct measures 2 mm. Free fluid: None. Additional Findings: None. IMPRESSION: 1. No sonographic abnormality of the right upper quadrant. Signer Name: Colin Sánchez MD Signed: 01/31/2019 3:05 PM Workstation Name: [id number]
--- NOTE | 2019-01-31 15:18 | Ultrasound Report ---
OB ultrasound FINDINGS: Viable IUP is seen with heart rate 124 bpm. Appropriate measurements reveal an MA of 6 weeks 5 days for an EDC of 09/21/2019. No hemorrhage is seen. The right ovary is normal. Left ovary c ontains a 3.1 x 2.8 x 3.3 cm cyst. No free fluid. IMPRESSION: Viable IUP with left corpus luteum cyst. Signer Name: Colin Sánchez MD Signed: 01/31/2019 3:13 PM Workstation Name: [id number]
[2019-01-31 15:50] VITALS: BP 101/74
== END 2019-01-31 15:50 | disposition home or self-care (01) ==
LOC: ED 11:27
DX: O21.8 Other vomiting complicating pregnancy (principal); O26.891 Other specified pregnancy related conditions, first trimester; R10.30 Lower abdominal pain, unspecified; Z3A.12 12 weeks gestation of pregnancy
CPT/HCPCS: 36415; 76705; 76801; 80053; 81001; 81025; 83690; 84702; 85025; 96361; 96374; 99284; J2765; J7030

== ENCOUNTER 2019-02-11 13:11 | Emergency (ER) | payer OTHER ==
--- NOTE | 2019-02-11 13:41 | Event Note ---
ED Screening Note Date of service: 02/11/19 Time: 13:30 ED Screening Note: PT reports chest heaviness, SOB and 10 weeks . Denies swelling to legs. Reports nausea and vomiting. Denies cough or fever. Positive care Denies abdominal pain or vaginal bleeding Alert and non toxic. no distress VSS, AFEB This initial assessment/diagnostic orders/clinical plan/treatment(s) is/are subject to change based on patients health status, clinical progression and re- assessment by fellow clinical providers in the ED. Further treatment and workup at subsequent clinical providers discretion. Patient/guardian urged not to elope from the ED as their condition may be serious if not clinically assessed and managed. Initial orders include: Labs
[2019-02-11 14:00] LABS: Basophils # (Auto) 0.1 K/mm3 (0.0-0.1); Eosinophils % (Auto) 0.4 % (0.0-4.3); Hematocrit 39.8 % (30.3-42.9); Hemoglobin 13.5 gm/dl (10.1-14.3); Lymphocytes # (Auto) 2.8 K/mm3 (1.2-5.4); Lymphocytes % (Auto) 30.4 % (13.4-35.0); Mean Corpuscular HGB Conc 34 % (30-34); Mean Corpuscular Volume 90 fl (79-97); Monocytes # (Auto) 0.5 K/mm3 (0.0-0.8); Monocytes % (Auto) 5.2 % (0.0-7.3); Platelet Count 422 K/mm3 (140-440); Red Blood Count 4.42 M/mm3 (3.65-5.03); Red Cell Distribution Width 13.6 % (13.2-15.2)
[2019-02-11 14:11] LABS: Alanine Aminotransferase 30 units/L (7-56); Albumin 4.4 g/dL (3.9-5); BUN/Creatinine Ratio 11; Blood Urea Nitrogen 8 mg/dL (7-17); Calcium 9.8 mg/dL (8.4-10.2); Hemolysis Index 2
[2019-02-11 14:12] LABS: INR 1.07 (0.87-1.13)
[2019-02-11 14:13] LABS: Partial Thromboplastin Time 34.3 Sec. (24.2-36.6)
[2019-02-11] MEDS ORDERED: ONDANSETRON 4 MG/2 ML INJ IM ONE (14:24)
[2019-02-11] MEDS ORDERED: ONDANSETRON 4 MG/2 ML INJ ONE (14:26)
--- NOTE | 2019-02-11 14:34 | Emergency Department Report ---
ED General Adult HPI - General Chief complaint: Chest Pain Stated complaint: DAVIDSON Time Seen by Provider: 02/11/19 13:30 Source: patient Mode of arrival: Ambulatory Limitations: No Limitations - History of Present Illness Initial comments: Patient is 24 years old female 2, 1 at 8 weeks . Patient presented to the ER complaining of chest pain and shortness of breath started after nausea and vomiting. Patient stated that symptoms has been going on for a few days. Patient denied any fever or chills. No cough. Patient denied any abdominal pain, pelvic pain, vaginal bleeding or discharge. - Related Data Home Medications Medication Instructions Recorded Confirmed Last Taken valACYclovir [Valtrex] 1 tab PO DAILY 07/24/18 07/24/18 07/23/18 09:00 1 Previous Rx's Medication Instructions Recorded Last Taken Type Pnv No.95/Ferrous Fum/Folic AC 1 each PO DAILY #30 tablet 12/16/17 Unknown Rx [ Vitamin Tablet] Ferrous Sulfate [Feosol 325 MG tab] 325 mg PO BID #60 tablet 07/27/18 Unknown Rx Ibuprofen [Motrin 800 MG tab] 800 mg PO Q6H PRN #30 tablet 07/27/18 Unknown Rx oxyCODONE /ACETAMINOPHEN [Percocet 1 - 2 tab PO Q4H PRN #30 tablet 07/27/18 Unknown Rx 5/325 mg] Lidocain2.5%/Prilocai2.5% [Emla] 5 gm TP ONCE PRN #1 tube 07/29/18 Unknown Rx Metoclopramide [Reglan] 10 mg PO TID PRN #20 tab 01/31/19 Unknown Rx Vit-Fe Fumar-FA [ 1 tab PO QDAY #30 tablet 01/31/19 Unknown Rx Vitamin] Allergies Allergy/AdvReac Type Severity Reaction Status Date / Time Iodine and Iodide Containing Allergy Itching Verified 07/24/18 09:44 Produc shellfish derived Allergy Swelling Verified 01/09/16 19:01 ED Review of Systems ROS: Stated complaint: DAVIDSON Other details as noted in HPI Comment: All other systems reviewed and negative Constitutional: denies: chills, fever Respiratory: shortness of breath. denies: cough Cardiovascular: chest pain Gastrointestinal: nausea, vomiting. denies: abdominal pain, diarrhea, constipation, hematemesis, melena, hematochezia Musculoskeletal: denies: back pain ED Past Medical Hx - Past Medical History Previous Medical History?: Yes Hx Hypertension: No Hx Congestive Heart Failure: No Hx Diabetes: No Hx Deep Vein Thrombosis: No Hx Renal Disease: No Hx Sickle Cell Disease: No Hx Seizures: No Hx Asthma: Yes (CHILD) Hx COPD: No Hx HIV: No - Surgical History Past Surgical History?: Yes Additional Surgical History: TONSILLECTOMY, C section - Social History Smoking Status: Never Smoker - Medications Home Medications: Home Medications Medication Instructions Recorded Confirmed Last Taken Type Pnv No.95/Ferrous Fum/Folic AC 1 each PO DAILY #30 tablet 12/16/17 07/24/18 Unkn own Rx [ Vitamin Tablet] valACYclovir [Valtrex] 1 tab PO DAILY 07/24/18 07/24/18 07/23/18 09:00 History 1 Ferrous Sulfate [Feosol 325 MG tab] 325 mg PO BID #60 tablet 07/27/18 Unknown Rx Ibuprofen [Motrin 800 MG tab] 800 mg PO Q6H PRN #30 tablet 07/27/18 Unknown Rx oxyCODONE /ACETAMINOPHEN [Percocet 1 - 2 tab PO Q4H PRN #30 tablet 07/27/18 Unknown Rx 5/325 mg] Lidocain2.5%/Prilocai2.5% [Emla] 5 gm TP ONCE PRN #1 tube 07/29/18 Unknown Rx Metoclopramide [Reglan] 10 mg PO TID PRN #20 tab 01/31/19 Unknown Rx Vit-Fe Fumar-FA [ 1 tab PO QDAY #30 tablet 01/31/19 Unknown Rx Vitamin] ED Physical Exam - General Limitations: No Limitations General appearance: alert, in no apparent distress - Head Head exam: Present: atraumatic, normocephalic, normal inspection - Eye Eye exam: Present: normal appearance - ENT ENT exam: Present: normal exam, normal orophraynx, mucous membranes moist - Neck Neck exam: Present: normal inspection, full ROM. Absent: tenderness, meningismus, lymphadenopathy, thyromegaly - Respiratory Respiratory exam: Present: normal lung sounds bilaterally, chest wall tenderness. Absent: respiratory distress, wheezes, rales, rhonchi, accessory muscle use, decreased breath sounds, prolonged expiratory - Cardiovascular Cardiovascular Exam: Present: regular rate, normal rhythm, normal heart sounds - GI/Abdominal GI/Abdominal exam: Present: soft, normal bowel sounds. Absent: distended, tenderness, guarding, rebound, rigid, organomegaly, mass, bruit, pulsatile mass, hernia - Extremities Exam Extremities exam: Present: normal inspection, full ROM, normal capillary refill. Absent: pedal edema, calf tenderness - Back Exam Back exam: Present: normal inspection, full ROM. Absent: CVA tenderness (R), CVA tenderness (L), muscle spasm, paraspinal tenderness, vertebral tenderness - Neurological Exam Neurological exam: Present: alert, oriented X3, CN II-XII intact, normal gait, reflexes normal - Psychiatric Psychiatric exam: Present: normal mood - Skin Skin exam: Present: warm, intact, normal color ED Course Vital Signs 02/11/19 13:30 Temperature 97.9 F Pulse Rate 94 H Respiratory 20 Rate Blood Pressure 140/85 O2 Sat by Pulse 98 Oximetry ED Medical Decision Making - Lab Data Result diagrams: 02/11/19 13:47 02/11/19 13:47 - EKG Data -: EKG Interpreted by Sd EKG shows normal: sinus rhythm Rate: normal - EKG Data Interpretation: no acute changes - Medical Decision Making Patient is 24 years old female 2, 1 at 8 weeks . Patient presented to the ER complaining of chest pain and shortness of breath started after nausea and vomiting. Patient stated that symptoms has been going on for a few days. Patient denied any fever or chills. No cough. Patient denied any abdominal pain, pelvic pain, vaginal bleeding or discharge. Labs reviewed and is unremarkable including a negative d-dimer. Patient refused chest x-ray. Patient stated that she does have an OB doctor and she started care already. Patient received 8 mg of Zofran. Patient stated that she is feeling much better. No vomiting observed in the ER. Patient given prescription for Zofran and advised to follow-up with her OB in the next 2-3 day s and to return to the ER if symptoms are not improved. Critical care attestation.: If time is entered above; I have spent that time in minutes in the direct care of this critically ill patient, excluding procedure time. ED Disposition Clinical Impression: Nausea/vomiting in , Chest pain Disposition: TO HOME OR SELFCARE Is pt being admited?: No Condition: Stable Instructions: Chest Pain (ED), Acute Nausea and Vomiting (ED) Referrals: PRIMARY CARE, [Primary Care Provider] - 3-5 Days
[2019-02-11 14:38] VITALS: BP 121/64
== END 2019-02-11 15:46 | disposition home or self-care (01) ==
LOC: ED 13:11
DX: O21.9 Vomiting of pregnancy, unspecified (principal); O26.891 Other specified pregnancy related conditions, first trimester; R07.9 Chest pain, unspecified; J45.909 Unspecified asthma, uncomplicated; Z3A.08 8 weeks gestation of pregnancy
CPT/HCPCS: 36415; 80053; 84702; 84703; 85025; 85379; 85610; 85730; 93005; 93010; 96372; 99283; J2405

== ENCOUNTER 2019-04-06 17:51 | Emergency (ER) | payer MEDICAID, OTHER ==
--- NOTE | 2019-04-06 19:23 | Event Note ---
ED Screening Note Date of service: 04/06/19 Time: 19:22 ED Screening Note: 24 y o female at 18 weeks gestation presents to ED cc of uri sx with diarhea x 2 days denies urinary symptoms This initial assessment/diagnostic orders/clinical plan/treatment(s) is/are subject to change based on patients health status, clinical progression and re- assessment by fellow clinical providers in the ED. Further treatment and workup at subsequent clinical providers discretion. Patient/guardian urged not to elope from the ED as their condition may be serious if not clinically assessed and managed. Initial orders include: acc eval
[2019-04-06] MEDS ORDERED: SODIUM CHLORIDE 0.9% 1000 ML 1,000 ML IV ONE (21:22)
[2019-04-06] MEDS ORDERED: ONDANSETRON 4 MG/2 ML INJ IV ONE (21:22)
[2019-04-06] MEDS ORDERED: ACETAMINOPHEN 500 MG TAB PO ONE (21:22)
[2019-04-06 22:00] LABS: Basophils % (Auto) 0.7 % (0.0-1.8); Eosinophils % (Auto) 0.5 % (0.0-4.3); Hematocrit 36.8 % (30.3-42.9); Hemoglobin 12.6 gm/dl (10.1-14.3); Lymphocytes % (Auto) 19.3 % (13.4-35.0); Mean Corpuscular HGB Conc 34 % (30-34); Mean Corpuscular Volume 91 fl (79-97); Monocytes # (Auto) 0.3 K/mm3 (0.0-0.8); Platelet Count 300 K/mm3 (140-440); Red Blood Count 4.05 M/mm3 (3.65-5.03); Red Cell Distribution Width 13.4 % (13.2-15.2)
[2019-04-06 22:18] LABS: Alanine Aminotransferase 19 units/L (7-56); Albumin 3.5 g/dL (3.9-5); BUN/Creatinine Ratio 7; Blood Urea Nitrogen 4 mg/dL (7-17); Calcium 9.1 mg/dL (8.4-10.2); Hemolysis Index 0
--- NOTE | 2019-04-06 23:01 | Ultrasound Report ---
Obstetrical ultrasound. HISTORY: Abdominal pain. FINDINGS: A viable intrauterine is dated 17 weeks 1 day. heart tones are 158 bpm. Cer vical length is 4.3 cm. position is cephalic. The placenta is anteriorly located. Amniotic fluid appears normal. The exam is too early for anatomical survey. IMPRESSION: Viable intrauterine dated 17 weeks 1 day. Signer Name: Jeferson Crowe MD Signed: 04/06/2019 10:56 PM Workstation Name: [id number]
[2019-04-06 23:05] LABS: Bilirubin,Urine NEG (Negative); Blood,Urine NEG (Negative); Color,Urine Yellow (Yellow); Mucus,Urine FEW /HPF; Protein,Urine <15 mg/dL mg/dL (Negative)
--- NOTE | 2019-04-06 23:22 | Emergency Department Report ---
ED Abdominal Pain HPI - General Chief Complaint: Upper Respiratory Infection Stated Complaint: COLD SYMPTOMS Time Seen by Provider: 04/06/19 21:19 Source: patient Mode of arrival: Ambulatory Limitations: No Limitations - History of Present Illness Initial Comments: Pt is a 24 y o female at 18 weeks gestation presents to ED cc of uri sx with diarhea x 2 days with abd cramping. States pos contacts with flu, denies urinary symptoms. there is nausea no vomiting, pt it tolerating po intake at this time. There no fever or chills. There is no vaginal bleeding or discharge. MD Complaint: abdominal pain Onset/Timin -: days(s) Location: LLQ, RLQ Radiation: none Severity: mild, moderate Severity scale (0 -10): 4 Quality: cramping Consistency: intermittent Improves With: nothing Worsens With: nothing Context: sick contacts Associated Symptoms: nausea, diarrhea, chills. denies: dysuria, melena, hematuria - Related Data LMP (females 10-50): other (4 months) Home Medications Medication Instructions Recorded Confirmed Last Taken valACYclovir [Valtrex] 1 tab PO DAILY 07/24/18 07/24/18 07/23/18 09:00 1 Previous Rx's Medication Instructions Recorded Last Taken Type Pnv No.95/Ferrous Fum/Folic AC 1 each PO DAILY #30 tablet 12/16/17 Unknown Rx [ Vitamin Tablet] Ferrous Sulfate [Feosol 325 MG tab] 325 mg PO BID #60 tablet 07/27/18 Unknown Rx Ibuprofen [Motrin 800 MG tab] 800 mg PO Q6H PRN #30 tablet 07/27/18 Unknown Rx oxyCODONE /ACETAMINOPHEN [Percocet 1 - 2 tab PO Q4H PRN #30 tablet 07/27/18 Unknown Rx 5/325 mg] Lidocain2.5%/Prilocai2.5% [Emla] 5 gm TP ONCE PRN #1 tube 07/29/18 Unknown Rx Metoclopramide [Reglan] 10 mg PO TID PRN #20 tab 01/31/19 Unknown Rx Vit-Fe Fumar-FA [ 1 tab PO QDAY #30 tablet 01/31/19 Unknown Rx Vitamin] Ondansetron [Zofran Odt] 4 mg PO Q8HR PRN #14 tab.rapdis 02/11/19 Unknown Rx Allergies Allergy/AdvReac Type Severity Reaction Status Date / Time Iodine and Iodide Containing Allergy Itching Verified 07/24/18 09:44 Produc shellfish derived Allergy Swelling Verified 01/09/16 19:01 ED Review of Systems ROS: Stated complaint: COLD SYMPTOMS Other details as noted in HPI Constitutional: denies: chills, fever Eyes: denies: eye pain, eye discharge, vision change ENT: denies: ear pain, throat pain Respiratory: denies: cough, shortness of breath, wheezing Cardiovascular: denies: chest pain, palpitations Endocrine: no symptoms reported Gastrointestinal: abdominal pain, nausea, diarrhea. denies: vomiting, constipation, hematemesis, melena, hematochezia Genitourinary: denies: urgency, dysuria, frequency, hematuria, discharge, dyspareunia Musculoskeletal: denies: back pain, joint swelling, arthralgia, myalgia Skin: denies: rash, lesions Neurological: denies: headache, weakness, numbness, paresthesias, confusion, vertigo Psychiatric: denies: anxiety, depression Hematological/Lymphatic: denies: easy bleeding, easy bruising ED Past Medical Hx - Past Medical History Previous Medical History?: Yes Hx Hypertension: No Hx Congestive Heart Failure: No Hx Diabetes: No Hx Deep Vein Thrombosis: No Hx Renal Disease: No Hx Sickle Cell Disease: No Hx Seizures: No Hx Asthma: Yes (CHILD) Hx COPD: No Hx HIV: No - Surgical History Past Surgical History?: Yes Additional Surgical History: TONSILLECTOMY, C section - Social History Smoking Status: Never Smoker Substance Use Type: None - Medications Home Medications: Home Medications Medication Instructions Recorded Confirmed Last Taken Type Pnv No.95/Ferrous Fum/Folic AC 1 each PO DAILY #30 tablet 12/16/17 07/24/18 Unknown Rx [ Vitamin Tablet] valACYclovir [Valtrex] 1 tab PO DAILY 07/24/18 07/24/18 07/23/18 09:00 History 1 Ferrous Sulfate [Feosol 325 MG tab] 325 mg PO BID #60 tablet 07/27/18 Unknown Rx Ibuprofen [Motrin 800 MG tab] 800 mg PO Q6H PRN #30 tablet 07/27/18 Unknown Rx oxyCODONE /ACETAMINOPHEN [Percocet 1 - 2 tab PO Q4H PRN #30 tablet 07/27/18 Unknown Rx 5/325 mg] Lidocain2.5%/Prilocai2.5% [Emla] 5 gm TP ONCE PRN #1 tube 07/29/18 Unknown Rx Metoclopramide [Reglan] 10 mg PO TID PRN #20 tab 01/31/19 Unknown Rx Vit-Fe Fumar-FA [ 1 tab PO QDAY #30 tablet 01/31/19 Unknown Rx Vitamin] Ondansetron [Zofran Odt] 4 mg PO Q8HR PRN #14 tab.rapdis 02/11/19 Unknown Rx ED Physical Exam - General Limitations: No Limitations General appearance: alert, in no apparent distress - Head Head exam: Present: atraumatic, normocephalic - Eye Eye exam: Present: normal appearance, PERRL, EOMI Pupils: Present: normal accommodation - ENT ENT exam: Present: normal orophraynx, mucous membranes moist, TM's normal bilaterally, normal external ear exam - Neck Neck exam: Present: normal inspection, full ROM. Absent: tenderness, lymphadenopathy, thyromegaly - Respiratory Respiratory exam: Present: normal lung sounds bilaterally. Absent: respiratory distress, wheezes, stridor, chest wall tenderness - Cardiovascular Cardiovascular Exam: Present: normal rhythm, tachycardia, normal heart sounds. Absent: systolic murmur, diastolic murmur, rubs, gallop - GI/Abdominal GI/Abdominal exam: Present: soft, normal bowel sounds. Absent: distended, tenderness, guarding, rebound, rigid, bruit, hernia - Rectal Rectal exam: Present: deferred - External exam: Present: other (deferred per patient) - Extremities Exam Extremities exam: Present: normal inspection - Back Exam Back exam: Present: normal inspection, full ROM. Absent: tenderness, CVA tenderness (R), CVA tenderness (L), rash noted - Neurological Exam Neurological exam: Present: alert, oriented X3, CN II-XII intact, normal gait - Psychiatric Psychiatric exam: Present: normal affect, normal mood - Skin Skin exam: Present: warm, dry, intact, normal color. Absent: rash ED Course Vital Signs 04/06/19 18:01 Temperature 99.4 F Pulse Rate 134 H Respiratory 16 Rate Blood Pressure 136/64 O2 Sat by Pulse 96 Oximetry ED Medical Decision Making - Lab Data Result diagrams: 04/06/19 21:42 04/06/19 21:42 Labs 04/06/19 04/06/19 04/06/19 21:42 21:42 21:42 WBC 5.0 RBC 4.05 Hgb 12.6 Hct 36.8 MCV 91 MCH 31 MCHC 34 RDW 13.4 Plt Count 300 Lymph % (Auto) 19.3 [place] % (Auto) 7.0 Eos % (Auto) 0.5 Baso % (Auto) 0.7 Lymph # 1.0 L [place] # 0.3 Eos # 0.0 Baso # 0.0 Seg Neutrophils % 72.5 H Seg Neutrophils # 3.6 Sodium 133 L Potassium 3.6 Chloride 98.5 Carbon Dioxide 19 L Anion Gap 19 BUN 4 L Creatinine 0.6 L Estimated GFR > 60 BUN/Creatinine Ratio 7 Glucose 91 Calcium 9.1 Total Bilirubin 0.20 AST 20 ALT 19 Alkaline Phosphatase 45 Total Protein 7.2 Albumin 3.5 L Albumin/Globulin Ratio 0.9 Lipase 11 L HCG, Quant 23874 H Urine Color Urine Turbidity Urine pH Ur Specific [place] Urine Protein Urine Glucose (UA) Urine Ketones Urine Blood Urine Nitrite Urine Bilirubin Urine Urobilinogen Ur Leukocyte Esterase Urine WBC (Auto) Urine RBC (Auto) U Epithel Cells (Auto) Urine Mucus 04/06/19 Unknown WBC RBC Hgb Hct MCV MCH MCHC RDW Plt Count Lymph % (Auto) [place] % (Auto) Eos % (Auto) Baso % (Auto) Lymph # [place] # Eos # Baso # Seg Neutrophils % Seg Neutrophils # Sodium Potassium Chloride Carbon Dioxide Anion Gap BUN Creatinine Estimated GFR BUN/Creatinine Ratio Glucose Calcium Total Bilirubin AST ALT Alkaline Phosphatase Total Protein Albumin Albumin/Globulin Ratio Lipase HCG, Quant Urine Color Yellow Urine Turbidity Clear Urine pH 6.0 Ur Specific [place] 1.008 Urine Protein <15 mg/dl Urine Glucose (UA) Neg Urine Ketones 20 Urine Blood Neg Urine Nitrite Neg Urine Bilirubin Neg Urine Urobilinogen 4.0 Ur Leukocyte Esterase Neg Urine WBC (Auto) 1.0 Urine RBC (Auto) 4.0 U Epithel Cells (Auto) 1.0 Urine Mucus Few - Radiology Data Radiology results: report reviewed, image reviewed single IUP intact, 17 weeks and 1 day, FHR: 158 bpm - Medical Decision Making single IUP intact, 17 weeks and 1 day, FHR: 158 bpm , hcg: quaunt conssitant with 17 weeks gestation, diarrhea improved, pt is tolerating po intake, there is no fever, plan: follow with OBGYN in 2-3 days , return to ed if symptoms worsen , pt verbalized agreement and understanding of discharge plan. pt declines flu and rapid strep swabs. at this time. Critical care attestation.: If time is entered above; I have spent that time in minutes in the direct care of this critically ill patient, excluding procedure time. ED Disposition Clinical Impression: Viral syndrome, Mild dehydration Diarrhea Qualifiers: Diarrhea type: unspecified type Qualified Code(s): R19.7 - Diarrhea, unspecified Disposition: DC- TO HOME OR SELFCARE Is pt being admited?: No Does the pt Need Aspirin: No Condition: Stable Instructions: Acute Diarrhea (ED), Viral Syndrome (ED) Referrals: JIM DELVALLE MD [Staff Physician] - 3-5 Days Forms: Work/School Release Form(ED) Time of Disposition: 23:32
[2019-04-07] VITALS: BP 90/63
== END 2019-04-06 23:59 | disposition home or self-care (01) ==
LOC: ED 17:51
DX: O26.892 Other specified pregnancy related conditions, second trimester (principal); B34.9 Viral infection, unspecified; E86.0 Dehydration; J45.909 Unspecified asthma, uncomplicated; Z98.890 Other specified postprocedural states; Z79.1 Long term (current) use of non-steroidal anti-inflammatories (NSAID); Z79.899 Other long term (current) drug therapy; Z91.013 Allergy to seafood; Z88.8 Allergy status to other drugs, medicaments and biological substances; Z3A.17 17 weeks gestation of pregnancy
CPT/HCPCS: 76805; 80053; 81001; 83690; 84702; 85025; 96361; 96374; 99284; J2405; J7030

== ENCOUNTER 2020-11-25 10:07 | Emergency (ER) | payer OTHER ==
[2020-11-25 11:26] VITALS: BP 142/92
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
== END 2020-11-25 15:27 | disposition home or self-care (01) ==
LOC: ED 10:07
DX: S63.693A Other sprain of left middle finger, initial encounter (principal); M54.5 Low back pain; J45.909 Unspecified asthma, uncomplicated; Z91.041 Radiographic dye allergy status; Z90.49 Acquired absence of other specified parts of digestive tract; Z98.890 Other specified postprocedural states; V89.2XXA Person injured in unspecified motor-vehicle accident, traffic, initial encounter; Y93.89 Activity, other specified; Y92.488 Other paved roadways as the place of occurrence of the external cause; Y99.8 Other external cause status
CPT/HCPCS: 99283